=== PATIENT | male | born 1995 | race Caucasian/White ===

== ENCOUNTER 2018-01-23 16:02 | Observation (INO) | payer OTHER ==
[2018-01-23] MEDS ORDERED: Lidocaine 2% 5 ML SDV ONE (16:31)
[2018-01-23] MEDS ORDERED: Propofol 200 MG/20 ML SDV ONE (16:31)
[2018-01-23] MEDS ORDERED: Ondansetron 4 MG/2 ML SDV ONE (16:31)
[2018-01-23] MEDS ORDERED: Rocuronium 10 MG/ML 10 ML Syringe ONE (16:31)
[2018-01-23] MEDS ORDERED: fentaNYL 250 MCG/5 ML SDV ONE (16:32)
[2018-01-23] MEDS ORDERED: Midazolam 1 MG/ML 2 ML SDV ONE (16:32)
[2018-01-23] MEDS: Lactated Ringers 1,000 ML IV SCH ×2 (16:40→22:21)
--- NOTE | 2018-01-23 16:52 | PCM.PREANE ---
Preanesthetic Assessment - Procedure Proposed Procedure: ORIF Left forearm open fracture - Anesthesia/Transfusion/Family Hx Anesthesia History: Prior Anesthesia Without Reaction Family History of Anesthesia Reaction: No - Review of Systems Other: Reports: None - Physical Assessment NPO Status Date: 01/23/18 NPO Status Time: 10:00 O2 Sat by Pulse Oximetry: 98 Respiratory Rate: 18 Vital Signs: Last Vital Signs Temp 36.8 C 01/23/18 16:30 Pulse 87 01/23/18 16:30 Resp 18 01/23/18 16:30 BP 152/91 H 01/23/18 16:30 Pulse Ox 98 01/23/18 16:30 ASA Class: 2E Mental Status: Alert & Oriented x3 Airway Class: Mallampati = 1 Dentition: Reports: Normal Dentition, Broken Tooth/Teeth (Left front tooth small chip) Thyro-Mental Finger Breadths: 3 Mouth Opening Finger Breadths: 3 ROM/Head Extension: Full - Allergies Allergies/Adverse Reactions: Allergies Allergy/AdvReac Type Severity Reaction Status Date / Time No Known Allergies Allergy Verified 01/23/18 16:44 - Blood Blood Available: No - Acknowledgements Anesthesia Type Planned: General Anesthesia Pt an Appropriate Candidate for the Planned Anesthesia: Yes Alternatives and Risks of Anesthesia Discussed w Pt/Guardian: Yes Pt/Guardian Understands and Agrees with Anesthesia Plan: Yes PreAnesthesia Questionnaire - Past Health History Medical/Surgical History: Denies Medical/Surgical History Musculoskeletal History: Reports: Other (See Below) Other Musculoskeletal History: R arm Fx - Infectious Disease History Infectious Disease History: Reports: None - Past Surgical History HEENT Surgical History: Reports: Myringotomy w Tube(s) - SUBSTANCE USE Smoking Status *Q: Current Every Day Smoker Tobacco Use Within Last Twelve Months: Cigarettes Recreational Drug Use History: No - HOME MEDS Home Medications: Home Meds . [No Known Home Meds] 01/23/18 [History] - CURRENT (IN HOUSE) MEDS Current Meds: Current Medications Lactated Ringer's (Ringers, Lactated) 1,000 mls @ 125 mls/hr IV ASDIRECTED RODOLFO Last Admin: 01/23/18 16:40 Dose: 125 mls/hr Discontinued Medications Fentanyl (Sublimaze) Confirm Administered Dose 250 mcg .ROUTE .STK-MED ONE Stop: 01/23/18 16:33 Lidocaine (Xylocaine-Mpf 2%) Confirm Administered Dose 5 ml .ROUTE .STK-MED ONE Stop: 01/23/18 16:32 Midazolam HCl (Versed 1 Mg/Ml) Confirm Administered Dose 2 mg .ROUTE .STK-MED ONE Stop: 01/23/18 16:33 Ondansetron HCl (Zofran) Confirm Administered Dose 4 mg .ROUTE .STK-MED ONE Stop: 01/23/18 16:32 Propofol (Diprivan 20 Ml) Confirm Administered Dose 200 mg .ROUTE .STK-MED ONE Stop: 01/23/18 16:32 Rocuronium [place] (Zemuron) Confirm Administered Dose 100 mg .ROUTE .STK-MED ONE Stop: 01/23/18 16:32
[2018-01-23] MEDS ORDERED: Bupivacaine 0.5% 10 ML SDV ONE (17:00)
[2018-01-23] MEDS ORDERED: HYDROmorphone 2 MG/ML SDV ONE (17:41)
[2018-01-23] MEDS ORDERED: Ketorolac 30 MG/ML SDV ONE (18:12)
[2018-01-23] MEDS ORDERED: Docusate Sodium 100 MG Cap PO PRN (18:45)
[2018-01-23] MEDS ORDERED: Ondansetron 4 MG/2 ML SDV IVPUSH PRN (18:45)
[2018-01-23] MEDS ORDERED: Morphine 10 MG/ML Syringe IVPUSH PRN (18:45)
--- NOTE | 2018-01-23 18:49 | PCM.OPNOTE ---
- General Post-Op/Procedure Note Date of Surgery/Procedure: 01/23/18 Operative Procedure(s): ORIF left radius, I and D to bone open fracture Findings: FDS to ring avulsion, open fracture Pre Op Diagnosis: grade 1 open left radius fracture, tendon rupture Post-Op Diagnosis: same plus FDS to index tendon avulsion proximally Anesthesia Technique: General LMA Primary Surgeon: Pablo Garg Mai EBL in mLs: 20 Complications: none Condition: Fair
[2018-01-23] MEDS ORDERED: fentaNYL 100 MCG/2 ML SDV IVPUSH PRN (19:02)
--- NOTE | 2018-01-23 19:19 | PCM.POSTAN ---
POST ANESTHESIA ASSESSMENT - MENTAL STATUS Mental Status: Alert, Oriented - RESPIRATORY Respiratory Status: Respiratory Rate WNL, Airway Patent, O2 Saturation Stable - CARDIOVASCULAR CV Status: Pulse Rate WNL, Blood Pressure Stable - GASTROINTESTINAL GI Status: No Symptoms - PAIN Pain Score: 2 - POST OP HYDRATION Hydration Status: Adequate & Stable
[2018-01-23] MEDS: ceFAZolin 2 GM in Premix Bag 1 BAG IV SCH (20:00)
[2018-01-24] MEDS: Acetaminophen/HYDROcodone 325-5 MG Tab PO PRN ×3 (01:39→10:57)
[2018-01-24] MEDS: ceFAZolin 2 GM in Premix Bag 1 BAG IV SCH ×2 (04:33→11:05)
[2018-01-24] MEDS ORDERED: Sodium Chloride 0.9% 2.5 ML Syringe FLUSH PRN (07:20)
[2018-01-24] MEDS ORDERED: Sodium Chloride 0.9% 10 ML Syringe FLUSH PRN (07:20)
--- NOTE | 2018-01-24 07:23 | PCM.SN ---
- Free Text/Narrative Note: S: pain controlled. tolerating PO. no other issues. states normal sensation in hand O: afebrile, vital signs stable splint to left arm. <2 sec cap refill in hand. normal sensation in radial/ median/ulnar nerves. active AIN/PIN/Ulnar, index finger at rest is extended slightly A/P: POD #1 I&D/ORIF right radius fracture, FDS to index proximal avulsion - non weight bearing left arm - antibiotics today. - home after abx - splint on, - if FDS does not do well, will send to Dr. Horton for repair.
--- NOTE | 2018-01-24 07:45 | PCM48HPAN ---
Post Anesthesia Note - EVALUATION WITHIN 48HRS OF ANESTHETIC Vital Signs in Normal Range: Yes Patient Participated in Evaluation: Yes Respiratory Function Stable: Yes Airway Patent: Yes Cardiovascular Function Stable: Yes Hydration Status Stable: Yes Pain Control Satisfactory: Yes Nausea and Vomiting Control Satisfactory: Yes Mental Status Recovered: Yes Resp Rate: 16
--- NOTE | 2018-01-24 07:50 | OR ---
SURGEON: Pablo Pinto MD DATE OF PROCEDURE: 01/23/2018 PREOPERATIVE DIAGNOSIS: Grade 1 open fracture of left distal radial shaft and tendon rupture. POSTOPERATIVE DIAGNOSES: 1. Grade 1 open fracture of left distal radial shaft and tendon rupture. 2. Proximal avulsion of flexor digitorum superficialis index finger tendon. OPERATION PERFORMED: 1. Open reduction and internal fixation of the left radial shaft. 2. I and D to bone of open left radial shaft fracture. ANESTHESIA: General with LMA. COMPLICATIONS: None. ESTIMATED BLOOD LOSS: 20 mL. TOURNIQUET TIME: 30 minutes. IMPLANTS: Sherine 6-hole LCDC plate with six 3.5 cortical screws. INDICATIONS: The patient is a 22-year-old male, right-hand dominant, who had a roller bar roll onto his arm. He was seen in [facility] and given antibiotics. He was transferred here. I discussed with him risks, benefits, and complications of I and D, including, but not limited to, infection, neurovascular injury, continued pain, nonresolution of symptoms, malunion, and nonunion, and he wished to proceed. He also smokes 2 packs of cigarettes per day, and I recommend complete smoking cessation. FINDINGS: 1. He had a volar open area that had the FDS to the index finger protruding through it. This was dirty and was cleaned out. The flexor pollicis longus muscle belly was shredded over 2/3 of it. 2. The radial artery was contused but continent. 3. The radial shaft had small comminution on the volar aspect. DESCRIPTION OF PROCEDURE: The patient was seen in the preoperative area. Operative extremity was marked with the patient. He was transferred to the operating room and placed supine on the operative table. General anesthesia was induced. An LMA was placed. He received preop antibiotics with Ancef. He had also received some prior. A well- padded upper arm tourniquet was placed on the left upper extremity, and the left arm was prepped and draped in a sterile fashion using Betadine scrub. A formal time-out was taken, identifying the correct patient, procedure, and extremity. Pneumatic tourniquet was exsanguinated with an Esmarch and inflated to 200 mmHg. Tourniquet time during the case was 30 minutes. The wounds were irrigated with fluid, normal saline with cystoscopy tubing. The tendon that was exposed was pulled on. It was cleaned off with a wet sponge removing all gross contamination, and the end was trimmed. It was noted to be the FDS to the index finger and that finger had slight extension to it compared to the other ones. Intraoperative call to Dr. Horton, who was not available, discussing with her that recommendation was to put the tendon in, and if it requires, later reconstruction or repair, but a lot of patients do well with it and also did not recommend tenodese because some patients also do not do as well with that. Following this, an 8 cm incision centered over the radial shaft was made. This was carried down to subcutaneous tissues. Hemostasis was obtained. The fascia overlying the FCR was opened, and the FCR was pulled ulnarly to protect the median nerve. The FPL was noted to be shredded over 2/3 of its area. This was elevated off, and also, the pronator quadratus was shredded over most of its area. There was a direct connection between the radial open area about 2 cm to the bone. There was a small amount of comminution of the bone, but the overall fracture was well aligned. With rotation, it did open. Small little tiny bone fragments were removed. The wound was then thoroughly irrigated with 3 L of normal saline with cystoscopy tubing. The median nerve was noted to be next to the FPL, but was normal and not contused. The radial artery was contused but was protected. A 6-hole LCDC plate was then bent to contour the radius and was placed, and then 3 bicortical screws were placed proximally and distally. This had excellent alignment, and x-ray confirmed excellent position. Following this, the wound was once again thoroughly irrigated. The pneumatic tourniquet was deflated. Hemostasis was obtained. The radial artery was patent but contused and may have a small amount of thrombosis, but the hand was pink, and the ulnar artery was able to be felt. The FDS tendon that had avulsed was placed into the wound proximally, and then this was closed with 3-0 nylon on the volar aspect over it. The FPL muscle was approximated with #1 Vicryl, and then the subcutaneous tissues were closed with 2-0 Vicryl, and skin was closed with lupe. The radial open area was closed with horizontal mattress 3-0 nylon sutures. Xeroform and sterile dressing were applied and a volar splint. The patient was extubated in the operative room and transferred to recovery room in stable condition. Sponge and needle counts were correct at the end of the case. There were no complications. The patient will be kept nonweightbearing. Depending on how he does with his hand, we will most likely send him to hand surgeon for possibility of later repair versus reconstruction. He will be kept overnight for antibiotics. DANIELLE CRUZ /[id number]
--- NOTE | 2018-01-24 08:08 | HP ---
DATE OF : 1995 PRIMARY CARE PHYSICIAN: None PCP CHIEF COMPLAINT: Left arm pain. HISTORY OF PRESENT ILLNESS: The patient is a 22-year-old right-hand dominant male, who, several hours previously at work down near [place], had a rolling pin come off a truck onto his arm. He had several open areas, including the tendon sticking out of a volar wound. He was seen in the [place] ER. This was irrigated and dressed, and he was given antibiotics and sent here for definitive treatment. I discussed with him, he notices pain with trying to move his hand. He did not have any other injury. He noticed no decreased sensation. He does smoke 2 packs of cigarettes per day. PAST MEDICAL HISTORY: None. PAST SURGICAL HISTORY: Ear tubes. SOCIAL HISTORY: Smokes. No illicits. FAMILY HISTORY: Noncontributory. REVIEW OF SYSTEMS: A 14-point review is otherwise negative. PHYSICAL EXAMINATION: GENERAL: In no apparent distress. Alert and oriented x3. HEENT: Mucous membranes moist. Anicteric sclerae. LUNGS: Equal and symmetric expansion. EXTREMITIES: Left upper extremity, the left index finger was sitting in slight extension compared to other ones; however, he was able to flex it, and it appeared as though he could bend the FDS, but it was very difficult secondary to pain. He had two open areas, one about 1.5 cm on the radial aspect of the distal third of the forearm and one on the volar aspect, where there was a tendon approximately 1 cm long coming out of it. There was no real gross contamination in this area. There was blood coming out of these areas. He was tender in this area, but he was nontender over the ulna. He had what appeared to feel like a palpable radial and ulnar pulse. He had normal sensation in the radial, median, and ulnar nerves to include the superficial branch of the radial nerve. He had gross normal sensation, but there may have been a small area on the dorsal aspect of decreased sensation in the superficial branch of radial nerve. He had active motor strength in AIN and PIN ulnar nerves. X-RAYS: Left forearm x-rays demonstrate a small comminuted fracture at the distal third of the radial diaphyseal shaft, but essentially well aligned with no displacement. ASSESSMENT: Left open distal radial shaft fracture with tendon avulsion. PLAN: I discussed the diagnosis and treatment options with the patient, including operative measures, due to the large amount of bleeding and his open fracture. I recommended irrigation and debridement and internal fixation to allow earlier motion. I informed him that I was unsure which tendon was avulsed, and this may require later treatment. He did not have any gross neurologic deficit. He may have a muscle injury that is unknown at this time. I informed him that he does smoke 2 packs of cigarettes and that healing will be diminished, and I recommended complete smoking cessation. He is agreeable to open reduction and internal fixation and irrigation and debridement. He understands the risks, benefits, and complications of the procedure including, but not limited to, infection, neurovascular injury, malunion, nonunion, delayed union, need for postoperative protocol, and need for further surgery, and he wished to proceed. DANIELLE CRUZ /[id number]
--- NOTE | 2018-01-24 10:33 | CR ---
EXAMINATION: Left wrist HISTORY: ORIF COMPARISON: 01/23/2018 TECHNIQUE: 2 views FINDINGS/IMPRESSION: Operative control films demonstrate screw and plate fixation of an undisplaced d istal radius diaphysis fracture.
== END 2018-01-24 12:15 | disposition home or self-care (01) ==
LOC: MW.ED 16:02 → MW.SDS 16:42 → MW.MS 18:45
PROVIDERS: ADMIT Orthopaedic Surgery; ATTEND Orthopaedic Surgery
DX: S52.355A Nondisplaced comminuted fracture of shaft of radius, left arm, initial encounter for closed fracture (principal); S56.192A Other injury of flexor muscle, fascia and tendon of left index finger at forearm level, initial encounter; F17.210 Nicotine dependence, cigarettes, uncomplicated; V69.9XXA Occupant (driver) (passenger) of heavy transport vehicle injured in unspecified traffic accident, initial encounter
CPT/HCPCS: 11011; 25515; 76000; 96365; 99284; A9270; C1713; J0131; J0690; J1170; J1885; J2250; J2405; J2704; J3010; J7120; 96360; J3490